=== PATIENT | male | born 1985 | race Two or more races ===

== ENCOUNTER 2021-11-07 16:39 | Emergency (ER) | payer BC ==
[~2021-11-07] VITALS: Ht 180.3 cm; Wt 74.8 kg
--- NOTE | 2021-11-07 16:50 | NUR ---
LISETTE C/O RT LWR LEG PAIN AND LEFT KNEE AND TOE PAIN S/P JUMPING FROM SECOND FLOOR [place], LANDED ON FEET, DID NOT HIT HEAD, -LOC. PLACED ON BED, [id number].
--- NOTE | 2021-11-07 16:55 | NUR ---
AT BED SIDE
--- NOTE | 2021-11-07 17:00 | NUR ---
X-RAY TECH. AT BED SIDE
[2021-11-07] MEDS ORDERED: HYDR-3972 PO ×2 (18:46→18:51)
[2021-11-07] MEDS ORDERED: IBUP-1957 PO ×2 (18:46→18:51)
[2021-11-07] MEDS ORDERED: HYDROCODONE/APAP 5/325MG TABLET PO ONE (19:00)
[2021-11-07] MEDS ORDERED: HYDROCODONE/APAP 5/325MG TABLET ONE (19:02)
[2021-11-07 19:19] VITALS: BP 125/64
--- NOTE | 2021-11-07 19:19 | NUR ---
Patient discharged to home in stable condition. Written and verbal after care instructions given. Patient verbalizes understanding of instruction.
== END 2021-11-07 19:20 | disposition home or self-care (01) ==
LOC: ER 16:43
DX: S92.332A Displaced fracture of third metatarsal bone, left foot, initial encounter for closed fracture (principal); M25.462 Effusion, left knee; W17.89XA Other fall from one level to another, initial encounter; Y93.39 Activity, other involving climbing, rappelling and jumping off; Y92.89 Other specified places as the place of occurrence of the external cause; Y99.8 Other external cause status
CPT/HCPCS: 72131-TC; 73564-TC; 73630-TC